=== PATIENT | male | born 1950 | race Caucasian/White ===

== ENCOUNTER 2018-09-22 01:20 | Outpatient (CLI) | payer MEDICARE, BC, SELFPAY ==
--- NOTE | 2018-09-22 11:35 | DI.MRI_ITS ---
SYMPTOMS/DIAGNOSIS: RADICULITIS, M54.10, LEFT LEG PAIN, M79.605, ONGOING LEFT LEG PAIN/TINGLING AND LOWER BACK DISCOMFORT, WORKING WITH PHYSICAL THERAPY MRI OF THE LUMBAR SPINE: Routine examination was performed. No priors for comparison. The conus medullaris has a normal appearance and location. At L5-S1, there are degenerative endplate signal changes. There is a diffuse disc bulge. Degenerative changes of the facets are present. No significant central spinal canal stenosis is seen. There is marked right neural foraminal stenosis and mild left neural foraminal stenosis. At L4-L5, there is disc desiccation. There are degenerative endplate signal changes. There is a diffuse disc bulge and a small central disc herniation. Hypertrophic changes of the facets are present. These all contribute to cause moderate central spinal canal stenosis. There is marked narrowing of the right neural foramen. There is severe bilateral neural foraminal stenosis. At L3-L4, there is disc desiccation. There are degenerative endplate signal changes. There is a diffuse disc bulge. There are degenerative changes of the facets. Mild narrowing of the central spinal canal is noted. There is mild right neural foraminal stenosis and marked left neural foraminal stenosis. At L2-L3, disc desiccation and degenerative endplate signal changes are present. There is a diffuse disc bulge. No focal disc herniation. Hypertrophic changes of the facets are present. These all contribute to cause mild narrowing of the central spinal canal. There is mild narrowing of the right neural foramen and left neural foramen present. At L1-L2, there is disc desiccation and degenerative endplate signal changes. A mild diffuse disc bulge is seen. No focal disc herniation or significant central spinal canal stenosis is seen. No significant neural foraminal stenosis is present. 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
== END 2018-09-22 01:40 ==
PROVIDERS: PCP Nurse Practitioner; Visit Provider Nurse Practitioner
DX: M51.17 Intervertebral disc disorders with radiculopathy, lumbosacral region (principal); M54.16 Radiculopathy, lumbar region; M51.16 Intervertebral disc disorders with radiculopathy, lumbar region; M79.605 Pain in left leg; R20.0 Anesthesia of skin
CPT/HCPCS: 72148

== ENCOUNTER → 2018-11-14 10:16 | Outpatient (BNVA) | payer MEDICARE, BC, SELFPAY | PROVIDERS: PCP Nurse Practitioner; Referring Provider Nurse Practitioner; Visit Provider Physical Therapy Assistant | DX: Z12.11 Encounter for screening for malignant neoplasm of colon (principal); Z86.010 Personal history of colon polyps; I10 Essential (primary) hypertension; Z80.3 Family history of malignant neoplasm of breast ==

== ENCOUNTER 2018-12-02 06:00 | Day surgery (SDC) | payer MEDICARE, BC, SELFPAY ==
[2018-12-02 06:10] VITALS: BP 122/80; PULSE 63; RESP 17; TEMP 36.6; O2SAT 97
--- NOTE | 2018-12-02 06:33 | W.COLOREPORT ---
Date of service: 12/02/18 Time of Service: :33 Colonoscopy Report Date of procedure: 12/02/18 Pre-op diagnosis general: Hx of polyps Post-op diagnosis procedure note: other (rectal polyps x4) Procedure: Colonoscopy with polypectomy by cold snare and cold forceps Surgeon: Renay Alan Anesthesia proc note operative: other (General/ ASA 2/Diane Murphy, RENU) Estimated blood loss (mL): 3 Pathology: other (Rectal polyps x4) Complications: None Disposition: same day Indications: The patient is here for Colonoscopy pre-op. His last screening was in 2014 and was remarkable for rectal serrated adenoma. He has no family history of colon cancer. He has not had any bowel habit changes. -Discussed colonoscopy bowel prep as well as the procedure. Discussed possible complications of the procedure to include bleeding, pain, perforation, missed small lesion/polyp, sore throat, aspiration and adverse reaction to the medications. Questions were answered to patient?s satisfaction. No guarantees were implied or given. Prep: Miralax/Dulcolax Procedure Start Time: 33 Procedure End Time: 08:17 Retraction Time: 24 minutes Findings: 4 small sessile polyps in the rectum Procedure Description: After informed consent was obtained the patient was taken to the procedure room and placed in a left decubitous position. Monitors were applied and a time out was done. The patients name, date of , procedure, allergies to medications and metal in their body was reviewed. The patient was then sedated. Once sedated and comfortable a rectal exam was done. External exam was normal. Internal exam revealed a normal sphincter tone and no palpable masses. I was unable to feel his prostate. The scope was then introduced and retro-flexed. Small Grade 1 internal hemorrhoids were identified. The scope was then advanced to the cecum without difficulty. The TI and appendiceal orifice were identified. The prep was adequate. The scope was then slowly retracted over 24 minutes back into the rectum. Polyps were removed with cold forceps and cold snare in the rectum. There was also moderate madrid-diverticulosis noted. The scope was removed and the patient was woken up and taken back to Same day surgery in stable condition. The patient tolerated the procedure well and there were no immediate complications. Follow up: The patient should follow up in 3-5 years unless they develop changes in bowel habits or other new gastrointestinal complaints.
--- NOTE | 2018-12-02 06:34 | W.PM.DSUDISC ---
Discharge Plan Disposition Patient Disposition: HOME Condition: Good Discharge Details Reason For Visit: Colonoscopy Attending Provider: Renay Alan Primary Care Provider: Esme Araiza Home Meds and New Rx's Prescriptions: Continued atorvastatin 40 MG tablet 40 mg PO DAILY RF: 0 levothyroxine [Synthroid] 175 MCG tablet 175 mcg PO M,W,F RF: 0 lisinopril-hydrochlorothiazide 1 EACH tablet 2 tab PO DAILY RF: 0 levothyroxine [Synthroid] 150 MCG tablet 150 mcg PO S,S,T,TH RF: 0 doxazosin 4 MG tablet 4 mg PO DAILY RF: 0 pediatric multivitamin [Gummi Bear Multivitamin] 1 EACH tablet,chewable 1 ea PO DAILY RF: 0 gabapentin 300 mg Capsule 300 mg PO TID RF: 0 Discharge Instructions Instructions: Colonoscopy (DC), Diverticulosis (DC), Colorectal Polyps (DC) Additional Instructions: Findings: 1. 4 small polyps in the rectum 2. Diverticulosis Follow up: 3-5 years Please call if you develop: fevers >101.5 Nausea or Vomiting Abdominal pain that is not transient DAY SURGERY UNIT POST COLONOSCOPY INSTRUCTIONS 1. Because there will be medication in your system for the next 24 hours, you may feel a little sleepy. Your coordination will be affected. Therefore: a. Do not drive or operate dangerous equipment for 24 hours. b. Do not drink alcohol beverages for 24 hours (not even beer). c. Plan to go home and rest for the day. 2. Generally there are no restrictions on your activity after a day or so has gone by, but you may feel a bit fatigued for a few days. 3 After you arrive home you may have a light meal and return to a normal diet as you can tolerate it without feeling sick to your stomach. 4. After surgery, you may feel pain or discomfort. This should be only transient, but if it persists please contact your doctor. 5. If there are any questions regarding the findings of your procedure, please feel free to contact your doctor. 6. If you are unable to contact your doctor with a problem, contact the hospital at [phone]. 7. Continue all your regular medications unless directed otherwise. I understand the above instructions and have no questions. Signature of Patient or Responsible Adult Escort Date/Time Name of Responsible Adult Escort Signature of Nurse Date/Time Activity:: Activity as Tolerated Diet:: High Fiber diet Discharge Orders Discharge Orders: Discharge Order (Routine); Ordered 12/02/18 Ordered By: Renay Alan DS: Diagnosis Discharge Diagnosis (1) S/P colonoscopy: Status: Acute (2) Diverticulosis large intestine w/o perforation or abscess w/o bleeding: Status: Acute (3) Colorectal polyps: Status: Acute
[2018-12-02] MEDS: Lactated Ringers 1,000 ML 80 ML IV (06:35)
--- NOTE | 2018-12-02 08:10 | BOWEL_PTH ---
PATIENT: Derrell Wheeler LOC: [facility] U#:[id number] AGE/SX: 68/M ROOM: RE12/02/[address]: Renay Alan MD : [id number] BED: DIS: 12/02/2018 SPEC #: [id number] RECD: 12/02/18 12:51 STATUS: RENEA RE #: [id number] LORI: 12/02/18 08:[address]: Renay Alan DEPT: Surgical Specimen RECD BY: Adele Souza ENTERED: 12/02/18 12:52 SP TYPE: Bowel OTHR DR: Esme Araiza Tissues: 1 - BIOPSY BOWEL Procedures: GROSS AND MICRO LEVEL 4 Comments: [id number]
[2018-12-02 08:53] VITALS: BP 109/69; PULSE 58; RESP 17; TEMP 36.3; O2SAT 97
== END 2018-12-02 09:18 | disposition home or self-care (01) ==
PROVIDERS: PCP Nurse Practitioner; Visit Provider Surgery
PROC: 0DJD8ZZ Inspection of Lower Intestinal Tract, Via Natural or Artificial Opening Endoscopic (ICD-10-PCS; CPT 45378; principal; 2018-12-02 07:30)
DX: Z12.11 Encounter for screening for malignant neoplasm of colon (principal); D12.8 Benign neoplasm of rectum; K64.0 First degree hemorrhoids; K57.30 Diverticulosis of large intestine without perforation or abscess without bleeding; Z86.010 Personal history of colon polyps; I10 Essential (primary) hypertension
CPT/HCPCS: 45385; 45380; 88305

== ENCOUNTER 2019-01-13 12:26 | Emergency (ER) | payer MEDICARE, BC, SELFPAY ==
[2019-01-13 12:31] VITALS: BP 118/72; PULSE 62; RESP 18; TEMP 37.1; O2SAT 100
--- NOTE | 2019-01-13 16:42 | ED.GENADUL_ITS ---
Discharge Plan Disposition Patient Disposition: HOME Discharge Details Chief Complaint: RashLesion Clinical Impression: Hives, Rash Primary Care Provider: Esme Araiza ED Provider: Quincy Elise Home Meds and New Rx's Prescriptions: New prednisone 20 mg tablet 40 mg PO DAILY 4 Days Qty: 8 RF: 0 epinephrine [EpiPen 2-Rio] 0.3 mg/0.3 mL auto-injector 0.3 mg IM ONCE PRN (Reason: anaphylaxis) Qty: 1 RF: 0 Continued atorvastatin 40 MG tablet 40 mg PO DAILY RF: 0 levothyroxine [Synthroid] 175 MCG tablet 175 mcg PO M,W,F RF: 0 lisinopril-hydrochlorothiazide 1 EACH tablet 2 tab PO DAILY RF: 0 doxazosin 4 MG tablet 4 mg PO DAILY RF: 0 gabapentin 300 mg Capsule 300 mg PO TID RF: 0 No Action levothyroxine [Synthroid] 150 MCG tablet 150 mcg PO S,S,T,TH RF: 0 Discharge Instructions Instructions: Urticaria (ED) Additional Instructions: Use epinephrine injection for severe allergic reaction (anaphylaxis) that results in difficulty breathing and/or oral swelling. Take Benadryl 25 mg every 8 hours for the next 4 days Take prednisone as prescribed. Your next dose is tomorrow 01/14/2019. Please contact your primary care physician to arrange follow-up. Return to the ER for any worsening or new concerning symptoms. Referrals: Esme Araiza [Primary Care Provider] - Medical Decision Making 68-year-old male here with itchy hives involving waistline and his groin and large hive right shoulder now 2+ weeks after hornet sting. Suspect allergic reaction with persistent histaminergic response. Plan to treat with course of prednisone and Benadryl and have him follow-up with primary care. I explained that if symptoms are not improving he will need to see a accounting machine mechanic. Usual and customary discharge instructions were provided. HPI General Mode of arrival: ambulatory . Date/Time Provider Initiated Documentation: 01/13/19 13:29 . Limitations to Documentation: no limitations . Information obtained by: patient . HPI Narrative: 68-year-old male here with a chief complaint of rash. Patient notes that he was stung by a hornet in his left hand and also right posterior shoulder approximately 2 weeks ago. Areas initially swelled up significantly and then started to resolve. He subsequently has developed rash that is red and itchy along his waistline, groin and perineum over the past week or so. He did start some Benadryl today but has not taken it prior to today. No oral or lip swelling, difficulty breathing or wheeze. Rash is now persistent and moderate. Related Data Home Medications Medication Instructions Recorded Confirmed atorvastatin 40 mg PO DAILY tab-cap 03/30/15 01/13/19 doxazosin 4 mg PO DAILY tab-cap 03/30/15 01/13/19 levothyroxine [Synthroid] 150 mcg PO S,S,T,TH 03/30/15 12/02/18 levothyroxine [Synthroid] 175 mcg PO M,W,F 03/30/15 01/13/19 lisinopril-hydrochlorothiazide 2 tab PO DAILY 03/30/15 01/13/19 gabapentin 300 mg PO TID 12/01/18 01/13/19 epinephrine [EpiPen 2-Rio] 0.3 mg IM ONCE PRN #1 each 01/13/19 prednisone 40 mg PO DAILY 4 Days #8 tab 01/13/19 Previous Rx's Medication Instructions Recorded epinephrine [EpiPen 2-Rio] 0.3 mg IM ONCE PRN #1 each 01/13/19 prednisone 40 mg PO DAILY 4 Days #8 tab 01/13/19 Allergies Allergy/AdvReac Type Severity Reaction Status Date / Time No Known Allergies Allergy Verified 01/13/19 12:34 General Stated Complaint: RashLesion OPHELIA: 4 Review of Systems ENT Reports as per HPI Respiratory Reports as per HPI Gastrointestinal Denies nausea and Denies vomiting Integumentary/Breasts Reports as per HPI [facility] Medical History Abnormal colonoscopy (Resolved) Colorectal polyps (Acute ~12/02/18) Diverticulosis large intestine w/o perforation or abscess w/o bleeding (Acute ~12/02/18) History of torn meniscus of left knee (Chronic) Hyperlipidemia Hypertension Hypothyroidism Pain in lateral portion of right knee (Chronic 04/25/15) Spinal stenosis (Acute) Surgical History Arthroplasty of knee (~2011) Colonoscopy - IV Sedation (~2004) Extraction of cataract Hx of arthroscopy of right knee (Acute) Hx of tonsillectomy (Chronic) S/P colonoscopy (Acute ~12/02/18) Family History Other Brain malignancy Breast cancer Colitis Heart disease Hyperlipidemia Hypothyroidism Kidney disease Social History Smoking/Tobacco Use Status: Former Tobacco Use Alcohol Intake: current Alcohol Intake frequency: holidays/special occasions only Drug use: Never Details: Pt states he quit smoking 1982 Do you feel safe at home: Yes Do you feel safe in your relationship?: Yes Exam Const General: cooperative and no acute distress HENMT Mouth: moist mucous membranes Eyes Conjunctivae: normal conjunctivae Sclera: normal sclerae Neck Neck: trachea midline and supple Resp Auscultation: clear to auscultation bilaterally, no rales, no rhonchi and no wheezes Cardio Jugular venous pressure: no JVD Rate: regular rate and not tachycardic Rhythm: regular rhythm GI Palpation: soft, not firm, no guarding, no masses, not rigid and nontender Skin General skin exam: no fluctuance and no induration Rashes: rashes noted (5cm circular hive rt shoulder, urticaria groin, waistline and gluteal cleft) Neuro General: alert, awake and tone normal Extrem General: no edema Psych Appearance: grossly normal Mental Status: mental status grossly normal Course Vital Signs Temperature 37.1 C 01/13/19 12:31 Pulse 62 01/13/19 12:31 Respiratory Rate 18 01/13/19 12:31 Blood Pressure 118/72 01/13/19 12:31 Pulse Oximetry 100 01/13/19 12:31 Temperature 37.1 C 01/13/19 12:31 Temperature Source Skin 01/13/19 12:31 Pulse 62 01/13/19 12:31 Respiratory Rate 18 01/13/19 12:31 Respiratory Effort 01/13/19 12:49 Blood Pressure 118/72 01/13/19 12:31 Pulse Oximetry 100 01/13/19 12:31 Oxygen Delivery Method Room Air 01/13/19 12:31 Oxygen Flow Rate 0 01/13/19 12:31 Pain Level 0 01/13/19 12:31
[2019-01-13] MEDS: predniSONE 20 MG TAB 60 MG PO (16:44)
[2019-01-13 16:52] VITALS: BP 104/76; PULSE 89; RESP 16; O2SAT 97
[2019-01-13 16:54] VITALS: BP 104/76; PULSE 89; RESP 16; O2SAT 97
== END 2019-01-13 16:54 | disposition home or self-care (01) ==
PROVIDERS: Emergency Provider Student in an Organized Health Care Education/Training Program; PCP Nurse Practitioner
DX: L50.9 Urticaria, unspecified (principal)
CPT/HCPCS: 99283; J7512

== ENCOUNTER 2019-01-28 19:59 | Emergency (ER) | payer MEDICARE, BC, SELFPAY ==
[2019-01-28 20:03] VITALS: BP 127/79; PULSE 89; RESP 18; TEMP 37.3; O2SAT 96
--- NOTE | 2019-01-28 20:13 | ED.GENADUL_ITS ---
Discharge Plan Disposition Patient Disposition: HOME Condition: Good Discharge Details Chief Complaint: Allergic Clinical Impression: Contact dermatitis Primary Care Provider: Esme Araiza ED Provider: Layton Knowles Eagan Meds and New Rx's Prescriptions: New prednisone 20 mg tablet 40 mg PO DAILY Qty: 10 RF: 0 diphenhydramine HCl [Benadryl] 25 mg capsule 25 mg PO Q6H PRN (Reason: itching) Qty: 20 RF: 0 Continued atorvastatin 40 MG tablet 40 mg PO DAILY RF: 0 levothyroxine [Synthroid] 175 MCG tablet 175 mcg PO M,W,F RF: 0 lisinopril-hydrochlorothiazide 1 EACH tablet 2 tab PO DAILY RF: 0 levothyroxine [Synthroid] 150 MCG tablet 150 mcg PO S,,T, RF: 0 doxazosin 4 MG tablet 4 mg PO DAILY RF: 0 gabapentin 300 mg Capsule 300 mg PO TID RF: 0 epinephrine [EpiPen 2-Rio] 0.3 mg/0.3 mL auto-injector 0.3 mg IM ONCE PRN (Reason: anaphylaxis) Qty: 1 RF: 0 Discharge Instructions Additional Instructions: This appears to be a contact dermatitis/localized allergic reaction to something coming in contact with the skin in the area of the rash. Does not appear to be a generalized allergic reaction. It does not appear to be a candidal yeast infection. We will place you back on prednisone and Benadryl. Follow-up with primary care next week. If unable to pinpoint a source of the reaction may need referral to transit planning manager. Return to ED for difficulty breathing, throat swelling, syncope, other concerns or problems. Referrals: Esme Araiza [Primary Care Provider] - Medical Decision Making This appears to be a contact type dermatitis that is present in the axilla and groin region. It is not candidal in nature. There is definitely a hive type reaction. It is pruritic. It is in the area of where his T-shirt would be tight in his underwear present. He denies any new undergarments, soaps, detergents, deodorants, other possible allergens. Is in the same job that he has had for years. No clear etiology. Not clear whether related to reaction a couple weeks ago. Will place back on steroids and Benadryl. Follow-up with primary care. May need referral to transit planning manager if cannot figure out etiology. Return to ED if generalized symptoms, difficulty breathing, other problems. HPI General Mode of arrival: ambulatory . Date/Time Provider Initiated Documentation: 01/28/19 20:10 . Limitations to Documentation: no limitations . Information obtained by: patient and RN notes reviewed . HPI Narrative: Patient presents with a rash under his arms and in his groin/perineal area. Started today. It is itchy. He had similar type reaction 2 weeks ago although not exactly in the same area. He has no difficulty breathing, throat swelling, tongue swelling, GI issues, lightheadedness or dizziness. There are no new soaps, detergents, fabric softeners, clothing, other potential allergen contacts that he can think of. Related Data Home Medications Medication Instructions Recorded Confirmed atorvastatin 40 mg PO DAILY tab-cap 03/30/15 01/28/19 doxazosin 4 mg PO DAILY tab-cap 03/30/15 01/28/19 levothyroxine [Synthroid] 150 mcg PO S,S,T,TH 03/30/15 01/28/19 levothyroxine [Synthroid] 175 mcg PO M,W,F 03/30/15 01/28/19 lisinopril-hydrochlorothiazide 2 tab PO DAILY 03/30/15 01/28/19 gabapentin 300 mg PO TID 12/01/18 01/28/19 epinephrine [EpiPen 2-Rio] 0.3 mg IM ONCE PRN #1 each 01/13/19 01/28/19 diphenhydramine HCl [Benadryl] 25 mg PO Q6H PRN #20 cap 01/28/19 prednisone 40 mg PO DAILY #10 tab 01/28/19 Previous Rx's Medication Instructions Recorded epinephrine [EpiPen 2-Rio] 0.3 mg IM ONCE PRN #1 each 01/13/19 diphenhydramine HCl [Benadryl] 25 mg PO Q6H PRN #20 cap 01/28/19 prednisone 40 mg PO DAILY #10 tab 01/28/19 Allergies Allergy/AdvReac Type Severity Reaction Status Date / Time No Known Allergies Allergy Verified 01/28/19 20:11 General Stated Complaint: RashLesion OPHELIA: 4 Review of Systems Eyes Denies irritation and Denies itchy eyes ENT Denies hoarseness, Denies lip swelling, Denies throat swelling and Denies tongue swelling Cardiovascular Denies diaphoresis, Denies syncope and Denies dyspnea Respiratory Denies dyspnea Gastrointestinal Denies cramping, Denies diarrhea, Denies nausea and Denies vomiting Integumentary/Breasts Reports pruritus and Reports rash Neurologic Denies syncope Allergic/Immunologic Denies itchy eyes, Denies lip swelling, Denies throat swelling and Denies tongue swelling [facility] Medical History Abnormal colonoscopy (Resolved) 05/18/[address] Alan, [facility], rectal serrated adenoma, repeat five years.mg Colorectal polyps (Acute ~12/02/18) Diverticulosis large intestine w/o perforation or abscess w/o bleeding (Acute ~12/02/18) Hyperlipidemia Hypertension Hypothyroidism Spinal stenosis (Acute) L leg pain Surgical History Colonoscopy - IV Sedation (~2004) Morales Melendrez Extraction of cataract bilateral 2009 Hx of arthroscopy of right knee (Acute) with meniscectomy. Dr. Jolly Hx of tonsillectomy (Chronic) In his youth S/P colonoscopy (Acute ~12/02/18) 2015- sessile serrated adenoma in the rectum Social History Smoking/Tobacco Use Status: Former Tobacco Use Alcohol Intake: current Alcohol Intake frequency: holidays/special occasions only Drug use: Never Details: Pt states he quit smoking 1982 Do you feel safe at home: Yes Do you feel safe in your relationship?: Yes Exam Const General: cooperative, comfortable and no acute distress Orientation: alert and oriented x3 Eyes Conjunctivae: conjunctivae normal Resp Effort & Inspection: normal respiratory effort Skin Rashes: rashes noted (erythematous, raised, pruritic rash) hives Course Vital Signs Temperature 99.1 F 01/28/19 20:03 Pulse 89 01/28/19 20:03 Respiratory Rate 18 01/28/19 20:03 Blood Pressure 127/79 01/28/19 20:03 Pulse Oximetry 96 01/28/19 20:03 Temperature 99.1 F 01/28/19 20:03 Temperature Source Skin 01/28/19 20:03 Pulse 89 01/28/19 20:03 Respiratory Rate 18 01/28/19 20:03 Respiratory Effort Non-Labored 01/28/19 20:07 Blood Pressure 127/79 01/28/19 20:03 Blood Pressure Position Sitting 01/28/19 20:03 Pulse Oximetry 96 01/28/19 20:03 Oxygen Delivery Method Room Air 01/28/19 20:03 Oxygen Flow Rate 0 01/28/19 20:03
[2019-01-28] MEDS: diphenhydrAMINE 25 MG CAP PO (20:25)
[2019-01-28] MEDS: predniSONE 20 MG TAB 60 MG PO (20:25)
== END 2019-01-28 20:38 | disposition home or self-care (01) ==
LOC: ER 20:35
PROVIDERS: Emergency Provider Emergency Medicine; PCP Nurse Practitioner
DX: L23.9 Allergic contact dermatitis, unspecified cause (principal); I10 Essential (primary) hypertension
CPT/HCPCS: 99283; J7512

== ENCOUNTER 2019-03-02 09:04 | Outpatient (REF) | payer MEDICARE, BC, SELFPAY ==
[2019-03-02 15:14] LABS: ALT 27 U/L (16-63); AST 22 U/L (15-37); Albumin 3.9 g/dL (3.4-5.0); Alkaline Phosphatase 46 U/L (46-116); BUN 16 mg/dL (7-18); CREATININE 0.99 mg/dL (0.70-1.30); Calcium 9.5 mg/dL (8.5-10.1); Calculated LDL 106 mg/dL; Chloride 104 mmol/L (98-107); Cholesterol 154 mg/dL (50-200); Glucose 110 mg/dL (70-100); HDL Cholesterol 38 mg/dL (40-60); Potassium 4.4 mmol/L (3.5-5.1); Sodium 141 mmol/L (136-145); TSH (W/Ref FT4) 0.42 uIU/mL (0.36-3.74); Total Protein 7.4 g/dL (6.4-8.2); Triglyceride 53 mg/dL (30-150)
== END 2019-03-02 09:24 ==
LOC: NCHCN 09:04
PROVIDERS: PCP Nurse Practitioner; Visit Provider Nurse Practitioner
DX: E78.5 Hyperlipidemia, unspecified (principal); I10 Essential (primary) hypertension; E03.9 Hypothyroidism, unspecified
CPT/HCPCS: 80053; 80061; 84443

== ENCOUNTER 2019-11-10 16:08 | Outpatient (REF) | payer MEDICARE, BC, SELFPAY ==
[2019-11-12 09:17] LABS: PSA, Screening 2.8 ng/mL (0.0-4.5)
== END 2019-11-10 16:28 ==
LOC: NCHCN 16:08
PROVIDERS: PCP Nurse Practitioner; Visit Provider Nurse Practitioner
DX: E03.9 Hypothyroidism, unspecified (principal); Z12.5 Encounter for screening for malignant neoplasm of prostate
CPT/HCPCS: 84153; 84443

== ENCOUNTER 2020-08-29 13:00 | Outpatient (REF) | payer OTHER, SELFPAY ==
[2020-08-29 15:48] LABS: ALT 38 U/L (16-63); AST 29 U/L (15-37); Albumin 4.2 g/dL (3.4-5.0); Alkaline Phosphatase 41 U/L (46-116); Anion Gap 8.6 mmol/L (3-11); BUN 15 mg/dL (7-18); Bilirubin, Total 1.1 mg/dL (0.2-1.0); CO2 26.4 mmol/L (21.0-32.0); Calcium 9.5 mg/dL (8.5-10.1); Calculated LDL 48 mg/dL (<100); Chloride 105 mmol/L (98-107); Cholesterol 107 mg/dL (<200); Glucose 105 mg/dL (74-106); HDL Cholesterol 37 mg/dL (40-60); Potassium 3.9 mmol/L (3.5-5.1); Sodium 140 mmol/L (136-145); TSH (W/Ref FT4) 29.86 uIU/mL (0.36-3.74); Total Protein 8.1 g/dL (6.4-8.2); Triglyceride 113 mg/dL (<150)
[2020-08-29 17:42] LABS: Hemoglobin A1C 6.6 % (<5.7)
== END 2020-08-29 13:01 | disposition home or self-care (01) ==
LOC: NCHCN 13:00
PROVIDERS: PCP Nurse Practitioner; Visit Provider Nurse Practitioner
DX: R73.03 Prediabetes (principal); E78.5 Hyperlipidemia, unspecified; E03.9 Hypothyroidism, unspecified
CPT/HCPCS: 80053; 80061; 83036; 84439; 84443

== ENCOUNTER 2020-10-31 15:36 | Outpatient (REF) | payer OTHER, SELFPAY ==
[2020-10-31 15:45] LABS: FREE T4 1.14 ng/dL (0.76-1.46); TSH 0.64 uIU/mL (0.36-3.74)
[2020-10-31 15:51] LABS: Hemoglobin A1C 6.6 % (<5.7)
== END 2020-10-31 15:37 | disposition home or self-care (01) ==
LOC: NCHCN 15:36
PROVIDERS: PCP Nurse Practitioner; Visit Provider Nurse Practitioner
DX: E03.9 Hypothyroidism, unspecified (principal); R73.03 Prediabetes
CPT/HCPCS: 83036; 84439; 84443

== ENCOUNTER 2020-12-19 15:43 | Outpatient (REF) | payer OTHER, SELFPAY ==
[2020-12-19 19:29] LABS: COMMENT (LAB VIEW ONLY) 223.48 mg/dL; Microalb ug/mg Crea 43.8 ug/mg Cr
== END 2020-12-19 15:44 | disposition home or self-care (01) ==
LOC: NCHCN 15:43
PROVIDERS: PCP Nurse Practitioner; Visit Provider Nurse Practitioner
DX: E11.9 Type 2 diabetes mellitus without complications (principal)
CPT/HCPCS: 82043; 82570

== ENCOUNTER 2021-03-14 10:44 | Outpatient (CLI) | payer OTHER, SELFPAY ==
--- NOTE | 2021-03-14 | DI.US_ITS ---
Exam(s) US HERNIA EXAM: US HERNIA CLINICAL HISTORY: LEFT INGUINAL HERNIA, K40.90. TECHNIQUE: Ultrasound was performed using standard protocol. COMPARISON: No exams were available for comparison FINDINGS: Sonographic assessment utilizing grayscale and color Doppler imaging was performed and targeted to th e area of clinical concern. There does appear to be a left inguinal hernia containing fat and loop of bowel. It measures 2.6 x 2 .[address] scan of the pelvis is recommended for further evaluation. IMPRESSION: Sonographic findings suggestive of a bowel containing left inguinal hernia. DATA REPOSITORY:
== END 2021-03-14 11:04 ==
PROVIDERS: PCP Nurse Practitioner; Visit Provider Nurse Practitioner
DX: K40.90 Unilateral inguinal hernia, without obstruction or gangrene, not specified as recurrent (principal)
CPT/HCPCS: 76857

== ENCOUNTER → 2021-03-22 10:55 | Outpatient (BNVA) | payer MEDICARE, SELFPAY | PROVIDERS: PCP Nurse Practitioner; Referring Provider Nurse Practitioner; Visit Provider Surgery | DX: K40.20 Bilateral inguinal hernia, without obstruction or gangrene, not specified as recurrent (principal); E11.9 Type 2 diabetes mellitus without complications | CPT/HCPCS: 99203; 99214 ==

== ENCOUNTER 2021-04-03 14:52 | Outpatient (REF) | payer MEDICARE, SELFPAY ==
[2021-04-03 15:15] LABS: Source Nasal/Nares
[2021-04-03 21:58] LABS: COVID-19 PCR Negative (Negative)
== END 2021-04-03 14:53 | disposition home or self-care (01) ==
LOC: LBN 14:52
PROVIDERS: PCP Nurse Practitioner; Visit Provider Surgery
DX: Z20.822 Contact with and (suspected) exposure to COVID-19 (principal); Z01.818 Encounter for other preprocedural examination
CPT/HCPCS: 87635

== ENCOUNTER 2021-04-04 07:45 | Day surgery (SDC) | payer MEDICARE, SELFPAY ==
--- NOTE | 2021-04-03 22:11 | W.PM.DSUDISC ---
Discharge Plan Disposition Patient Disposition: HOME Condition: Good Discharge Details Reason For Visit: right inguinal hernia Attending Provider: Coreen Cano Primary Care Provider: Esme Araiza Home Meds and New Rx's Prescriptions: No Action atorvastatin 40 MG tablet 40 mg PO DAILY RF: 0 lisinopril-hydrochlorothiazide 1 EACH tablet 2 tab PO DAILY RF: 0 levothyroxine [Synthroid] 150 MCG tablet 150 mcg PO DAILY RF: 0 doxazosin 4 MG tablet 4 mg PO DAILY RF: 0 metformin 500 mg tablet 500 mg PO DAILY RF: 0 ibuprofen 200 mg capsule 200 mg PO Q6H PRNRF: 0 gabapentin 300 mg Capsule 300 mg PO TID RF: 0 epinephrine [EpiPen 2-Rio] 0.3 mg/0.3 mL auto-injector 0.3 mg IM ONCE PRN (Reason: anaphylaxis) Qty: 1 RF: 0 Discharge Instructions Activity:: 5# wt restriction x2 wks Remove Dressings/Wound Care:: 24 hours Shower/Bathe:: 24 hours Diet:: As Tolerated Discharge Orders Discharge Orders: Discharge Order (Routine); Ordered 04/03/21 Ordered By: Coreen Cano DS: Diagnosis Discharge Diagnosis (1) Reducible right inguinal hernia: Status: Acute
[2021-04-04] VITALS (14 sets, daily range): BP systolic 96–154; BP diastolic 56–99; PULSE 46–63; RESP 13–20; TEMP 36–36.6; O2SAT 95–100; BMI 10.5
--- NOTE | 2021-04-04 07:10 | ANES.PREOP_ITS ---
General Info Date of Service Date Performed: 04/04/21 Height: 5 ft 8 in Weight: 31.285 kg Body Mass Index (BMI): 10.5 Surgical Procedure: Operation Date: 04/04/21 09:25 Proposed Procedures Side Surgeon p Bilateral Hernia Inguinal Laparoscopic w/mesh possible Bilateral Coreen Cano DO Meds Allergies and Home Medications Allergies Allergy/AdvReac Type Severity Reaction Status Date / Time bee venom protein (honey bee) Allergy Intermediate Swelling/Ed Unverified 04/04/21 08:05 benjamin Home Medication Medication Instructions Recorded atorvastatin 40 mg PO DAILY tab-cap 03/30/15 doxazosin 4 mg PO DAILY tab-cap 03/30/15 levothyroxine [Synthroid] 150 mcg PO S,S,T,TH 03/30/15 lisinopril-hydrochlorothiazide 2 tab PO DAILY 03/30/15 gabapentin 300 mg PO TID 12/01/18 epinephrine [EpiPen 2-Rio] 0.3 mg IM ONCE PRN #1 each 01/13/19 ibuprofen 200 mg capsule 200 mg PO Q6H PRN 03/20/21 metformin 500 mg tablet 500 mg PO DAILY 03/20/21 Current Visit Medications: Current Medications Generic Name Dose Route Start Last Admin Trade Name Freq PRN Reason Stop Dose Admin Acetaminophen 1,000 mg 04/04/21 06:00 Acetaminophen 500 Mg Tab PO 05/03/21 23:59 PREOP RENA Gabapentin 300 mg 04/04/21 06:00 Gabapentin 300 Mg Cap PO 05/03/21 23:59 PREOP RENA Ringer's Solution 1,000 mls @ 80 mls/hr 04/04/21 06:00 IV 05/03/21 23:59 INFUSION RENA Cefazolin Sodium/Dextrose 2 gm in 50 mls @ 100 mls/hr 04/04/21 06:00 Ancef Duplex IVPB 05/03/21 23:59 PREOP RENA Ondansetron HCl 4 mg/ Sodium 52 mls @ 200 mls/hr 04/03/21 22:09 Chloride IVPB Q6H PRN PRN IV Miscellaneous Supplies 1 each 04/04/21 06:00 Iv Access IV 05/03/21 23:59 DIRECTED RENA Morphine Sulfate 2 mg 04/03/21 22:09 Morphine 4 Mg/Ml Syr IVP Q1H PRN PRN Sodium Chloride 0 ml 04/04/21 06:00 Normal Saline Flush 10 Ml Syr IV 05/03/21 23:59 PRN PRN Sodium Chloride 0 ml 04/04/21 06:00 Normal Saline 10 Ml Vial IJ 05/03/21 23:59 DIRECTED PRN Sterile Water 0 ml 04/04/21 06:00 Water,Injection,Sterile 10 Ml Vial IJ 05/03/21 23:59 DIRECTED PRN Tramadol HCl 50 mg 04/03/21 22:09 Tramadol 50 Mg Tab PO Q6H PRN PRN Pain PFSH Active Problems Active Problems: Problem Status Onset Code Reducible right inguinal hernia K40.90 Colorectal polyps ~12/02/18 K63.5 Diverticulosis large intestine w/o perforation or abscess w/o bleeding ~12/02/18 K57.30 S/P colonoscopy ~12/02/18 Z98.890 Medical History Medical History Abnormal colonoscopy 05/18/[address] Alan, [facility], rectal serrated adenoma, repeat five years.mg Colorectal polyps (~12/02/18) Diabetes Diverticulosis large intestine w/o perforation or abscess w/o bleeding (~12/02/18) DJD (degenerative joint disease) GERD (gastroesophageal reflux disease) History of adenomatous polyp of colon Hyperlipidemia Hypertension Hypothyroidism Left inguinal hernia Leg pain, left Migraine Obesity Shoulder pain, left Spinal stenosis L leg pain Surgical History Surgical History Colonoscopy - IV Sedation (~2004) Morales Melendrez Extraction of cataract bilateral 2009 Hx of arthroscopy of right knee with meniscectomy. Dr. Jolly Hx of tonsillectomy In his youth S/P colonoscopy (~12/02/18) 2015- sessile serrated adenoma in the rectum Status post total knee replacement, right Tobacco Smoking/Tobacco Use Status: Former Tobacco Use Alcohol Alcohol Intake: current Alcohol intake frequency: holidays/special occasions only Substance Use Substance use: Never Substance use type: does not use Vital Signs and Lab Results Lab Results Blood Type / Crossmatch: No Data to Display Complete Blood Count: No Data to Display Complete Metabolic Panel: No Data to Display Liver Function Panel: 2 No Data to Display Coagulation Panel: No Data to Display Cardiac Panel: No Data to Display Arterial Blood Gas: No Data to Display Venous Blood Gas: No Data to Display Pancreas Panel: No Data to Display Thyroid Panel: No Data to Display Infectious Disease: Coronavirus (COVID-19)(PCR) Negative (Negative) 04/03/21 11:43 04/03/21 Coronavirus 2019 Source Nasal/Nares 04/03/21 11:43 04/03/21 Blood Cultures: No Data to Display Toxicology Panel: No Data to Display Anesthesia Assessment and Plan Anesthesia History Personal History: No History of Anesthesia Complications Family History: No Family History of Anesthesia Complications Exercise Tolerance Exercise Tolerance: Metabolic Equivalents>4 Pertinent Negatives Pertinent Negatives: No Symptoms of GERD Cardiac & Pulmonary Exam Cardiac Exam: Normal S1/S2 Heart Sounds Pulmonary Exam: Clear Bilateral Breath Sounds Implantable Cardiac Device Does patient have a Pacemaker or an ICD?: No Airway Exam Known Difficult Airway: No Mallampati Class: 2 Mouth Opening: Normal (> 3cm) Thyromental Distance: Greater than 3 cm Neck Range of Motion: Full ROM Neck Circumference: Normal Teeth Condition: Normal Dentition (missing and damaged dentition upper left) Tooth Numberin. Broken tooth ASA Classification ASA Score: ASA 3 Emergency Case?: No NPO Status NPO Status: NPO Clears >2 hours, Solids >8 hours Anesthesia Plan Resuscitation Status: Full Code Anesthesia Technique: General Anesthesia Airway Planned: Endotracheal Tube Monitors Used: Standard Monitors
[2021-04-04] MEDS: Gabapentin 300 MG CAP PO (08:35)
[2021-04-04] MEDS: Acetaminophen 500 MG TAB 1000 MG PO (08:35)
[2021-04-04] MEDS: Lactated Ringers 1,000 ML 80 ML IV ×3 (08:45→14:02)
[2021-04-04] MEDS: ceFAZolin 2 GM/50 ML BAG IVPB (10:20)
[2021-04-04] MEDS: Bupivacaine 0.25% Pres-Free 30 ML VIAL (10:34)
[2021-04-04] MEDS: Lidocaine 1% Multi-Dose 50 ML VIAL (10:35)
--- NOTE | 2021-04-04 10:47 | W.ANESNERVE ---
Nerve Block Single Injection Procedure Date and Time Date Performed: 04/04/21 Procedure Start: 10:03 Location Where Procedure Performed Procedure Location: Operating Room Procedure Stop: 10:14 Reason Performed: Postoperative Analgesia Requesting Provider: Coreen Cano Timeout Performed Timeout Performed: Yes Monitoring Used ECG, Blood Pressure, SpO2, ETCO2 and See EMR for corresponding vital signs Sterility Sterility: Hand Hygiene, Surgical Cap, Surgical Mask, Sterile Gloves, Eye Protection and Chlorhexidine Sedation Given During Procedure Sedation Given (Indicate Dose Given): Other: Medication/Route/Dose:: patient under GA during TAP block Patient Mental Status Patient Mental Status: Performed under general anesthesia Nerve Block 1st Nerve Block: Laterality: Bilateral Block Type: TAP Bilateral Needle / Catheter Used: 100mm SonoPlex II Local Anesthetic Bolus (Indicate Dose Given): Half of Total block solution given into each side, Bupivacaine 0.25% Dose:: 30 cc and Exparel Dose:: 10 cc Additives (Indicate Dose Given): None Ultrasound: Sterile probe cover and gel used Ultrasound Image Saved?: Yes Nerve Stimulator: Not Used Paresthesia: None Procedure Tolerated: No Complications Procedure Outcome: Successful Performed By: Renata Reza Supervised By: Matt Wilkins
[2021-04-04] MEDS: Bupivacaine LIPOSOME/PF 133 MG/10 ML VIAL IJ (12:30)
[2021-04-04] MEDS: Ketorolac 15 MG/ML VIAL IVP (13:59)
--- NOTE | 2021-04-04 14:55 | W.ANESPOSTOP ---
Postoperative Evaluation Date, Time and Location Date Performed: 04/04/21 Time Performed: 14:56 Patient Location: Day Surgery Unit Vital Signs Most Recent Imported Vital Signs: Most Recent Vital Signs Temp Pulse Resp BP Pulse Ox 36.5 C 50 L 19 132/76 98 04/04/21 14:10 04/04/21 14:10 04/04/21 14:10 04/04/21 14:10 04/04/21 14:10 Pain Score Most Recent Pain Score: Most Recent Pain Score Pain Level 2 04/04/21 14:10 Assessment Mental Status: Awake (Alert & Oriented to Patient Baseline) Airway and Respiratory Function: Patent airway with normal (patient baseline) respiratory exam Cardiovascular Function: Hemodynamically Stable Hydration Status: Adequately Hydrated Nausea & Vomiting: No Nausea or Vomiting Pain: Pain is tolerable per patient Peripheral Nerve Block: Patient did not receive a nerve block
--- NOTE | 2021-04-04 21:25 | ROE_ITS ---
Date of service: 04/04/21 Time of Service: 21:25 Operative Note Operative Note DATE OF PROCEDURE: 04/04/21 PRE-OP DIAGNOSIS: b/l inguinal hernias and umbilical hernia POST-OP DIAGNOSIS: same PROCEDURE: attempted palprascopic b/l inguinal repair. open left inguinal hernia repair umbilical hernia repair. ASSISTING SURGEON: Renay Alan ACQUISITION LEAD: Kandy Ortiz ANESTHESIA TYPE: Local By Surgeon, General LMA/ETT and Primary Nerve Block Refer to Anesthesia Record ESTIMATED BLOOD LOSS: 20 COMPLICATIONS: None Implants: see RN notes. Procedure Description: The patient is here today for hernia repair. Is causing him pain and discomfort. There is a extremely small incidental right inguinal hernia as well as a small umbilical hernia today we will be attempting a bilateral laparoscopic tap lateral inguinal hernia pair as well as a incidental umbilical hernia repair. And the possibility of a open hernia repair. Informed consent is obtai jesi explaining risks and benefits of the procedure including but not limited to: Bleeding, infection, pneumonia, blood clots, damage to bowel, bladder, blood vessels, or testicles. Complications of anesthetic as outlined by the department of anesthesia. Chronic pain, chronic numbness, reaction to the mesh necessitating removal of mesh, or recurrence of hernia. Patient is brought to the operative room suite and placed in the supine position. Anesthesia is administered per the department of anesthesia. Ceja catheter is placed. Tap nerve blocks are done by the department of anesthesia. Patient received preop antibiotics. He is prepped and draped in the usual sterile fashion using a ChloraPrep scrub solution. Timeout is performed. The patient was placed on the operating table in the supine position. A transverse infraumbilical incision was made and carried down through the skin and subcutaneous tissue with a scalpel. Bleeding points were controlled with electrocautery device. The anterior rectus fascia sheath was transversely incised. The rectus muscle was dissected laterally. A finger was placed under the anterior fascial sheath. Ensuring that we were in the proper plane. The balloon dissector was then introduced. The dissected lumen was placed down to the pubic tubercle area and noted to be in good position laparoscopically. This was then inflated to 20 puffs of air, creating a preperitoneal space. The dissecting balloon was removed and pneumopreperitoneum was established. The patient was placed in a Trendelenburg position. Next, two 5 mm midline ports were placed in the lower midline under direct visualization, after skin incisions were made. Upon entering the preperitoneal space, the periosteum in the external ring identified. The femoral vessels were identified. He has a significant amount of preperitoneal fat which hinders the ability to identify structures. Eventually the cord is identified. We had difficulty retracting and maneuvering the cord. And we were unable to identify the sac of the cord. After more than 45 minutes of attempting to manipulate and identified the sac, the procedure was abandoned for patient safety and converted to an open left hernia repair. The right inguinal hernia is extremely small and asymptomatic for the patient. We were not able to identify this laparoscopically either. I did not feel that the size of the hernia warranted open exploration. Only the left side was performed. Twenty cc of .25% Marcaine w/ epinephrine was used for local anesthetization. A #12 blade was used to make an incision over the external ring. Electrocautery used to provide hemostasis and dissect down to the fascia. The fascia was pretty much obliterated and there was nothing to open. The cord is elevated. The nerve was not identified. There very large is a cord lipomas. This is dissected off the cord structures. It is ligated and the stump was returned to the abdominal cavity. Electro-cautery is used to provide hemostasis. A [place] drain was placed around the cord to assist in mobilization. The cord was explored. There was is large hernia sac on the cord. There is no direct hernia pushing through the floor. The hernia sac is dissected off the cord using a combination of blunt dissection and electrocautery. Electrocautery is used to provide hemostasis. The sac was opened and there was small bowel within the sac. The contents are returned to the abdominal cavity. A high ligation of the sac is performed. The sac is returned the abdominal cavity. The hernia sac is than inverted and returned to the abdominal cavity. A sizel arge plug is than inserted into the defect through the internal ring, and over sewn to tighten up the ring with 2-0 vicryl. Please see RN notes from Lot number of the [employer] mesh patch/plug. The cord structures are still able to freely move through the ring itself. The patch was then placed onto the floor, and using 2-0 Vicryl, sewn into the pubic tubercle and the shelving portions of the inguinal ligament, in the standard Lichenstein fashion. The tails of the mesh are brought around the cord, sewn together w/ 2-0 Vicryl, and tucked under the external oblique. The wound was copiously irrigated. There was no bleeding noted. The drain was removed. All structures are returned to normal anatomical position. The nerve is not sewn into the mesh, nor caught up in any sutures. The external oblique is re- approximated using 2-0 vicryl in a running fashion. 10 cc of Exparel was instilled into the wound. Deep tissue was approximated with 3-0 Vicryl in a running fashion, and skin was approximated with 4-0 Monocryl in a running subcuticular fashion. Skin glue and sterile dressings are applied. Ceja was removed at the completion of the case. The patient tolerated the procedure without complications to recovery in stable condition. DARRON WOODY DO
== END 2021-04-04 16:44 | disposition home or self-care (01) ==
PROVIDERS: PCP Nurse Practitioner; Visit Provider Surgery
PROC: (CPT 49650; principal; 2021-04-04 09:15)
DX: K40.20 Bilateral inguinal hernia, without obstruction or gangrene, not specified as recurrent (principal); K42.9 Umbilical hernia without obstruction or gangrene; Z53.31 Laparoscopic surgical procedure converted to open procedure; E11.9 Type 2 diabetes mellitus without complications; E66.9 Obesity, unspecified; I10 Essential (primary) hypertension; E78.5 Hyperlipidemia, unspecified
CPT/HCPCS: 49505; 49585; C1781; J0690; J1100; J1885; J2405; J2704

== ENCOUNTER → 2021-04-24 09:26 | Outpatient (BNVA) | payer MEDICARE, SELFPAY | PROVIDERS: PCP Nurse Practitioner; Referring Provider Nurse Practitioner; Visit Provider Surgery | DX: Z48.815 Encounter for surgical aftercare following surgery on the digestive system (principal) ==

== ENCOUNTER → 2021-07-25 11:19 | Outpatient (BNVA) | payer MEDICARE, SELFPAY | PROVIDERS: PCP Nurse Practitioner; Referring Provider Nurse Practitioner; Visit Provider Surgery | DX: R10.9 Unspecified abdominal pain (principal); G89.18 Other acute postprocedural pain | CPT/HCPCS: 99212; 99213 ==

== ENCOUNTER 2021-09-07 18:13 | Outpatient (REF) | payer MEDICARE, SELFPAY | END 2021-09-07 18:14 | disposition home or self-care (01) | LOC: NCHCN 18:13 | PROVIDERS: PCP Nurse Practitioner; Visit Provider Nurse Practitioner Family ==

== ENCOUNTER → 2021-09-19 07:21 | Outpatient (BNVA) | payer MEDICARE, SELFPAY | PROVIDERS: PCP Nurse Practitioner; Referring Provider Nurse Practitioner; Visit Provider Surgery | DX: R10.32 Left lower quadrant pain (principal) | CPT/HCPCS: 99212 ==

== ENCOUNTER 2021-09-20 19:38 | Outpatient (REF) | payer MEDICARE, SELFPAY ==
[2021-09-20 19:45] LABS: ALT 39 U/L (16-63); AST 30 U/L (15-37); Albumin 4.1 g/dL (3.4-5.0); Alkaline Phosphatase 52 U/L (46-116); Anion Gap 7.4 mmol/L (3-11); BUN 19 mg/dL (7-18); CO2 27.6 mmol/L (21.0-32.0); CREATININE 0.9 mg/dL (0.70-1.30); Calcium 9.2 mg/dL (8.5-10.1); Calculated LDL 32 mg/dL (<100); Chloride 104 mmol/L (98-107); Cholesterol 91 mg/dL (<200); Glucose 158 mg/dL (74-106); HDL Cholesterol 34 mg/dL (40-60); Potassium 3.6 mmol/L (3.5-5.1); Sodium 139 mmol/L (136-145); TSH 0.06 uIU/mL (0.36-3.74); Total Protein 7.8 g/dL (6.4-8.2); Triglyceride 125 mg/dL (<150)
== END 2021-09-20 19:39 | disposition home or self-care (01) ==
LOC: NCHCN 19:38
PROVIDERS: PCP Nurse Practitioner; Visit Provider Nurse Practitioner Family
DX: E11.9 Type 2 diabetes mellitus without complications (principal); I10 Essential (primary) hypertension; E78.5 Hyperlipidemia, unspecified; E03.9 Hypothyroidism, unspecified
CPT/HCPCS: 80053; 80061; 84443

== ENCOUNTER → 2021-11-24 07:50 | Outpatient (BNVA) | payer MEDICARE, SELFPAY | PROVIDERS: PCP Nurse Practitioner; Referring Provider Nurse Practitioner; Visit Provider Physical Therapy Assistant | DX: Z86.010 Personal history of colon polyps (principal); Z12.11 Encounter for screening for malignant neoplasm of colon ==

== ENCOUNTER 2021-12-06 15:35 | Outpatient (REF) | payer MEDICARE, SELFPAY | END 2021-12-06 15:36 | disposition home or self-care (01) | LOC: LBN 15:35 | PROVIDERS: PCP Nurse Practitioner; Visit Provider Physical Therapy Assistant | DX: E03.9 Hypothyroidism, unspecified (principal) | CPT/HCPCS: 84443 ==

== ENCOUNTER 2022-02-12 18:10 | Outpatient (REF) | payer MEDICARE, SELFPAY ==
[2022-02-12 17:56] LABS: TSH (W/Ref FT4) 0.31 uIU/mL (0.36-3.74)
[2022-02-12 18:16] LABS: FREE T4 1.22 ng/dL (0.76-1.46)
== END 2022-02-12 18:11 | disposition home or self-care (01) ==
LOC: NCHCN 18:10
PROVIDERS: PCP Nurse Practitioner; Visit Provider Nurse Practitioner Family
DX: E03.9 Hypothyroidism, unspecified (principal)
CPT/HCPCS: 84439; 84443

== ENCOUNTER 2022-05-05 12:11 | Outpatient (REF) | payer MEDICARE, SELFPAY ==
[2022-05-05 15:48] LABS: ALT 35 U/L (16-63); AST 31 U/L (15-37); Albumin 4.1 g/dL (3.4-5.0); Alkaline Phosphatase 56 U/L (46-116); Anion Gap 8.4 mmol/L (3-11); BUN 15 mg/dL (7-18); Bilirubin, Total 1.1 mg/dL (0.2-1.0); CO2 28.6 mmol/L (21.0-32.0); Calcium 9.1 mg/dL (8.5-10.1); Chloride 103 mmol/L (98-107); Estimated GFR 80.97 (mL/min/1.73m2); Glucose 97 mg/dL (74-106); Potassium 3.7 mmol/L (3.5-5.1); Sodium 140 mmol/L (136-145)
== END 2022-05-05 12:12 | disposition home or self-care (01) ==
LOC: LBN 12:11
PROVIDERS: PCP Nurse Practitioner; Visit Provider Physician Assistant Medical
DX: Z20.822 Contact with and (suspected) exposure to COVID-19 (principal)
CPT/HCPCS: 80053

== ENCOUNTER 2022-06-05 12:54 | Outpatient (REF) | payer MEDICARE, SELFPAY ==
[2022-06-05 16:19] LABS: TSH (W/Ref FT4) 8.24 uIU/mL (0.36-3.74)
[2022-06-05 17:16] LABS: FREE T4 0.95 ng/dL (0.76-1.46)
[2022-06-05 23:29] LABS: PSA, Screening 4.2 ng/mL (<=6.5)
== END 2022-06-05 12:55 | disposition home or self-care (01) ==
LOC: NCHCN 12:54
PROVIDERS: PCP Nurse Practitioner; Visit Provider Nurse Practitioner Family
DX: E11.9 Type 2 diabetes mellitus without complications (principal); Z12.5 Encounter for screening for malignant neoplasm of prostate; E78.5 Hyperlipidemia, unspecified; E03.9 Hypothyroidism, unspecified; K21.9 Gastro-esophageal reflux disease without esophagitis; Z00.00 Encounter for general adult medical examination without abnormal findings
CPT/HCPCS: 84153; 84439; 84443

== ENCOUNTER 2022-06-15 16:49 | Outpatient (REF) | payer MEDICARE, SELFPAY ==
[2022-06-15 16:16] LABS: COMMENT (LAB VIEW ONLY) 109.33 mg/dL
[2022-06-15 16:44] LABS: Microalb ug/mg Crea 112.4 ug/mg Cr
== END 2022-06-15 16:50 | disposition home or self-care (01) ==
LOC: NCHCN 16:49
PROVIDERS: PCP Nurse Practitioner; Visit Provider Nurse Practitioner Family
DX: E11.9 Type 2 diabetes mellitus without complications (principal)
CPT/HCPCS: 82043; 82570

== ENCOUNTER 2022-07-23 17:19 | Outpatient (REF) | payer MEDICARE, SELFPAY ==
[2022-07-23 18:02] LABS: TSH 3.88 uIU/mL (0.36-3.74)
[2022-07-24 18:27] LABS: PSA, Screening 3.4 ng/mL (<=6.5)
== END 2022-07-23 17:20 | disposition home or self-care (01) ==
LOC: NCHCN 17:19
PROVIDERS: PCP Nurse Practitioner; Visit Provider Nurse Practitioner Family
DX: E03.9 Hypothyroidism, unspecified (principal); Z12.5 Encounter for screening for malignant neoplasm of prostate; I10 Essential (primary) hypertension
CPT/HCPCS: 84153; 84443

== ENCOUNTER 2022-12-04 16:29 | Outpatient (REF) | payer MEDICARE, SELFPAY ==
[2022-12-04 17:11] LABS: HCT 42.6 % (40.0-50.0); HGB 13.9 g/dL (13.5-17.5); MCH 25.5 pg (27.0-33.0); MCHC 32.6 % (32.0-36.0); MCV 78 fL (80-95); MPV 11.1 fL (8.0-11.0); Platelet Count 209 10^3/uL (130-400); RBC 5.45 10^6/uL (4.36-5.78); RDW 15.7 % (11.8-14.1); RDW-SD 44.2 fL
[2022-12-04 19:57] LABS: ALT 38 U/L (16-63); AST 34 U/L (15-37); Albumin 4.4 g/dL (3.4-5.0); Alkaline Phosphatase 46 U/L (46-116); BUN 13 mg/dL (7-18); Bilirubin, Total 1.5 mg/dL (0.2-1.0); CREATININE 0.9 mg/dL (0.70-1.30); Calcium 10.2 mg/dL (8.5-10.1); Calculated LDL 62 mg/dL (<100); Chloride 104 mmol/L (98-107); Cholesterol 112 mg/dL (<200); Estimated GFR 91.88 (mL/min/1.73m2); Glucose 115 mg/dL (74-106); HDL Cholesterol 42 mg/dL (40-60); Potassium 3.7 mmol/L (3.5-5.1); Sodium 142 mmol/L (136-145); TSH (W/Ref FT4) 4.06 uIU/mL (0.36-3.74); Total Protein 8.1 g/dL (6.4-8.2); Triglyceride 40 mg/dL (<150)
[2022-12-04 21:06] LABS: FREE T4 0.97 ng/dL (0.76-1.46)
[2022-12-04 22:05] LABS: Hemoglobin A1C 6.5 % (<5.7)
== END 2022-12-04 16:30 | disposition home or self-care (01) ==
LOC: NCHCN 16:29
PROVIDERS: PCP Nurse Practitioner Family; Visit Provider Nurse Practitioner Family
DX: I10 Essential (primary) hypertension (principal); E11.9 Type 2 diabetes mellitus without complications; K21.9 Gastro-esophageal reflux disease without esophagitis; E78.5 Hyperlipidemia, unspecified
CPT/HCPCS: 80053; 80061; 85027; 83036; 84439; 84443

== ENCOUNTER → 2023-01-14 01:27 | Outpatient (CLI) | payer MEDICARE, SELFPAY ==
--- NOTE | 2023-01-14 | DI.RAD_ITS ---
Exam(s) XR SHOULDER RT COMPLETE 2+V EXAM: XR SHOULDER RT COMPLETE 2+V CLINICAL HISTORY: RT SHOULDER PAIN, M25.511,CATCHING SYNDROME. TECHNIQUE: 2D digital imaging was performed of the right shoulder. Five images were obtained. AP, Grashey, Y-view and axillary views were obtained. COMPARISON: No exams were available for comparison FINDINGS: BONES: No acute fracture is present. No bony destructive lesion is seen. JOINTS: No dislocation present. There are degenerative changes seen at the acromioclavicular and dolores ohumeral joints characterized by joint space narrowing and osteophytes. SOFT TISSUE: Normal. IMPRESSION: Osteoarthritis of the shoulder. DATA REPOSITORY: RADIATION DOSE DELIVERED:
== END ==
PROVIDERS: PCP Nurse Practitioner Family; Visit Provider Nurse Practitioner Family
DX: M19.011 Primary osteoarthritis, right shoulder (principal)
CPT/HCPCS: 73030

== ENCOUNTER → 2023-01-24 10:55 | Outpatient (BNVA) | payer MEDICARE, SELFPAY | PROVIDERS: PCP Nurse Practitioner Family; Referring Provider Nurse Practitioner Family; Visit Provider Physical Therapy Assistant | DX: Z12.11 Encounter for screening for malignant neoplasm of colon (principal); Z86.010 Personal history of colon polyps ==

== ENCOUNTER 2023-02-08 10:01 | Day surgery (SDC) | payer MEDICARE, SELFPAY ==
--- NOTE | 2023-02-07 21:51 | W.COLOREPORT ---
Date of service: 02/08/23 Time of Service: 11:06 Colonoscopy Report Date of procedure: 02/08/23 Pre-op diagnosis general: Serrated adenoma in the rectum/pandiverticular disease Post-op diagnosis procedure note: same Surgeon: Coreen Cano Anesthesia Type: General:No Airway Estimated blood loss (mL): 2 Complications: None Disposition: same day Prep: Miralax/Dulcolax Retraction Time: 10 Procedure Description: After informed consent was obtained the patient was taken to the procedure room and placed in a left decubitous position. Monitors were applied and a time out was done. The patients name, date of , procedure, allergies to medications and metal in their body was reviewed. The patient was then sedated. Once sedated and comfortable a rectal exam was done. External exam was normal. Internal exam revealed a normal sphincter tone and no palpable masses. The prostate normal The scope was then introduced and retrofelexed. No internal hemorrhoids were identified. The scope was then advanced to the cecum w/out difficulty. The TI and appendiceal orifice were identified. The prep was BBPS 3 in all segments for total of 9. The scope was then slowly retracted over 11 minutes back into the rectum. He has [place] diverticula.. There are multiple, large mouth diverticula. There are no signs of active bleeding or infection. The diverticula do extend all the way over to the the cecum. He has multiple polyps that are removed today. there is a Flat 5 mm polyp at 80 cm that is removed with a cold biting forcep. He is a 1 cm pedunculated polyp at 70 cm that is removed with a cold snare. He has a 0.75 cm flat polyp at 50 cm that is removed with a cold biting forcep. He has a flat 5 mm polyp at 20 cm that is removed with a cold biting forcep. All specimens are retrieved and no bleeding is noted. The mucosa is pink and healthy with a normal vascular pattern. The patient was woken up and taken back to Same day surgery in stable condition. The patient tolerated the procedure well and there were no immediate complications. Follow up: The patient should follow up in 3 years unless they develop changes in bowel habits or other new gastrointestinal complaints.
--- NOTE | 2023-02-07 21:52 | PDOC.DSDIS_ITS ---
Date of service: 02/08/23 Time of Service: 11:13 Discharge Plan Disposition Patient Disposition: Home Condition: Good Discharge Details Reason For Visit: Colon cancer screening Attending Provider: Coreen Cano Primary Care Provider: MCKENNA GREENFIELD Home Meds and New Rx's Prescriptions: Continued atorvastatin 40 MG tablet 40 mg PO DAILY lisinopril-hydrochlorothiazide 1 EACH tablet 2 tab PO DAILY ibuprofen 200 mg capsule 200 mg PO Q6H PRN amlodipine 5 mg tablet 5 mg PO DAILY omeprazole 20 mg capsule,delayed release(DR/EC) 20 mg PO DAILY levothyroxine 112 mcg capsule 112 mcg PO DAILY gabapentin 300 mg Capsule 300 mg PO TID epinephrine [EpiPen 2-Rio] 0.3 mg/0.3 mL auto-injector 0.3 mg IM ONCE PRN (Reason: anaphylaxis) Qty: 1 0RF Rx Instructions: as a single dose Discontinued bisacodyl [Dulcolax (bisacodyl)] 5 mg tablet,delayed release (DR/EC) 5 mg PO ONCE Qty: 4 0RF Rx Instructions: Take according to provider's instructions for colonoscopy prep. polyethylene glycol 3350 17 gram/dose powder 17 g PO ONCE Qty: 238 0RF Rx Instructions: To be taken as directed by prescriber's office for colonoscopy prep. Discharge Instructions Additional Instructions: DSU Colonoscopy Post-Op Instructions Instructions for Everyone who is given Anesthesia: For your safety, please do the following for the next twenty-four (24) hours: *Do Not operate a motor vehicle (car, truck, motorcycle, etc.) *Do Not drink alcoholic beverages or use any recreational drugs for the first 24 hours or while taking pain medications. The medications in your body may have a reaction that can be dangerous. *Do Not make any important decisions or sign any important papers. Findings: -Multiple diverticula. Make sure you are moving your bowels on a regular basis and not straining to go to the bathroom. Consider starting a fiber product such as Metamucil daily. -Multiple polyps. No ASA or NSAIDs for 7 to 10 days Follow up: -My office will send a letter in 2 to 3 weeks time with results of biopsies and when we want you to repeat the colonoscopy, most likely 3 years time. 1. No lifting over 20 pounds or strenuous activity for the first 24 hours after your procedure. After 24 hours there are no restrictions on your activity but you may feel fatigued for a few days. 2. After you arrive home you may have a light meal and return to your normal diet as you can tolerate it without feeling sick to your stomach. 3. You may have a bloated, gaseous feeling in your belly (abdomen) after a colonoscopy. Passing gas and belching will help. Walking or lying down on your left side with your knees flexed may relieve the discomfort. Call the office at [phone] (Office) or [phone] (Hospital) right away if you notice any of the following: a.Vomiting of blood or ?coffee ground stools?. b.Rectal bleeding 1Tbsp, blood clots or continuous bleeding. c.Severe belly (abdominal) pain. d.A hard distended belly (abdomen) and an inability to pass gas. 4. Please don?t expect to have a normal BM (bowel movement) for 2-3 days after your procedure. 5. If there are questions regarding the findings of your procedure, please contact your doctor 6. If you are unable to contact your doctor with a problem, contact the hospital at [phone]. 7. Continue all your regular medications unless directed otherwise. I understand the above instructions and have no questions. Signature of Patient or Adult Escort Name of Responsible Adult Escort Signature of Nurse Date/Time Activity:: See above Diet:: See above Discharge Orders Discharge Orders: Discharge Order (Routine); Ordered 02/08/23 Ordered By: Coreen Cano DS: Diagnosis Discharge Diagnosis (1) Colorectal polyps: Status: Acute Asessment and Plan: Post [employer] Note/Eval The patient is seen and examined after their colonoscopy.? The patient has been able to pass gas.? They are not having abdominal pain.? They have been able to tolerate liquids and a snack.? They do not have any nausea or vomiting.? They are not having any chest pain or shortness of breath.??? They are not having any rectal bleeding. Their vital signs have been stable-see nursing notes. We discussed findings during their colonoscopy, and any biopsies that were done/polyps that were removed. The patient will be sent a letter with any biopsy results, and when to repeat the colonoscopy.-see discharge instructions. Patient was given explicit instructions to follow-up regarding colonoscopy-refer to discharge instructions.? We reviewed resumption of medications. Patient verbalized understanding and discharged in stable and satisfactory condition- See nursing notes. (2) Diverticulosis large intestine w/o perforation or abscess w/o bleeding: Status: Acute (3) Diabetes: (4) DJD (degenerative joint disease): (5) GERD (gastroesophageal reflux disease): (6) History of adenomatous polyp of colon: (7) History of tobacco use: (8) Hyperlipidemia: (9) Hypertension: (10) Hypothyroidism: (11) Spinal stenosis:
[2023-02-08 10:10] VITALS: BP 133/94; PULSE 64; RESP 17; TEMP 36.7; O2SAT 99
[2023-02-08] MEDS: Lactated Ringers 1,000 ML 80 ML IV (10:23)
[2023-02-08 10:24] VITALS: BMI 37.0
--- NOTE | 2023-02-08 10:24 | W.ANESPRE ---
General Info Date of Service Date Performed: 02/08/23 Height: 5 ft 1 in Weight: 88.9 kg Body Mass Index (BMI): 37.0 Surgical Procedure: Operation Date: 02/08/23 10:35 Proposed Procedure Side Surgeon p Colonoscopy Coreen Cano DO Actual Procedure Side Surgeon p Colonoscopy Not Applicable Coreen Cano DO Pre-Op Diagnosis Post-Op Diagnosis Colon cancer screening Meds Allergies and Home Medications Allergies Allergy/AdvReac Type Severity Reaction Status Date / Time bee venom protein (honey bee) Allergy Intermediate Swelling/Ed Unverified 02/06/23 16:11 benjamin Home Medication Medication Instructions Recorded atorvastatin 40 mg tablet 40 mg PO DAILY 03/30/15 lisinopril 20 2 tab PO DAILY 03/30/15 mg-hydrochlorothiazide 12.5 mg tablet gabapentin 300 mg capsule 300 mg PO TID 12/01/18 epinephrine 0.3 mg/0.3 mL 0.3 mg (0.3 mL) IM ONCE PRN 01/13/19 injection, auto-injector (EpiPen anaphylaxis #1 ea 2-Rio) ibuprofen 200 mg capsule 200 mg PO Q6H PRN 03/20/21 amlodipine 5 mg tablet 5 mg PO DAILY 12/14/22 levothyroxine 112 mcg capsule 112 mcg PO DAILY 12/14/22 omeprazole 20 mg capsule,delayed 20 mg PO DAILY 12/14/22 release Current Visit Medications: Current Medications Generic Name Dose Route Start Last Admin Trade Name Freq PRN Reason Stop Dose Admin Hyoscyamine Sulfate 0.125 mg 02/08/23 09:32 Hyoscyamine 0.125 Mg Sl/Oral/Chew SL 03/10/23 09:31 DIRECTED PRN Ringer's Solution 1,000 mls @ 80 mls/hr 02/08/23 06:00 02/08/23 10:23 IV 02/08/23 23:59 80 mls/hr INFUSION RENA Administration IV Miscellaneous Supplies 1 each 02/08/23 06:00 Iv Access IV 02/08/23 23:59 DIRECTED RENA Ondansetron HCl 4 mg 02/08/23 09:32 Ondansetron 4 Mg/2 Ml Vial IVP 03/10/23 09:31 Q4H PRN PRN Nausea / Vomiting Sodium Chloride 0 ml 02/08/23 06:00 Normal Saline Flush 10 Ml Syr IV 02/08/23 23:59 PRN PRN Sodium Chloride 0 ml 02/08/23 06:00 Normal Saline 10 Ml Vial IJ 02/08/23 23:59 DIRECTED PRN Sterile Water 0 ml 02/08/23 06:00 Water,Injection,Sterile 10 Ml Vial IJ 02/08/23 23:59 DIRECTED PRN PFSH Active Problems Active Problems: Problem Status Onset Code Colorectal polyps ~12/02/18 K63.5 Diverticulosis large intestine w/o perforation or abscess w/o bleeding ~12/02/18 K57.30 Medical History Medical History Abnormal colonoscopy 05/18/[address] Alan, [facility], rectal serrated adenoma, repeat five years.mg Diabetes DJD (degenerative joint disease) GERD (gastroesophageal reflux disease) History of adenomatous polyp of colon History of tobacco use Hyperlipidemia Hypertension Hypothyroidism Left inguinal hernia Leg pain, left Migraine Obesity Reducible right inguinal hernia small Shoulder pain, left Spinal stenosis L leg pain Surgical History Surgical History Colonoscopy - IV Sedation (~2004) Morales Melendrez Extraction of cataract bilateral 2009 History of left inguinal hernia repair (~04/04/21) History of umbilical hernia repair (~04/04/21) Hx of arthroscopy of right knee with meniscectomy. Dr. Jolly Hx of tonsillectomy In his youth S/P colonoscopy (~12/02/18) 2015- sessile serrated adenoma in the rectum Status post total knee replacement, right Tobacco Smoking/Tobacco Use Status: Former Tobacco Use Alcohol Alcohol Intake: current Alcohol intake frequency: holidays/special occasions only Substance Use Substance use: Never Substance use type: does not use Vital Signs and Lab Results Vital Signs Most Recent Vital Signs in EMR: Most Recent Vital Signs Temp Pulse Resp BP Pulse Ox 36.7 C 64 17 133/94 H 99 02/08/23 10:10 02/08/23 10:10 02/08/23 10:10 02/08/23 10:10 02/08/23 10:10 Lab Results Blood Type / Crossmatch: No Data to Display Complete Blood Count: No Data to Display Complete Metabolic Panel: No Data to Display Liver Function Panel: No Data to Display Coagulation Panel: No Data to Display Cardiac Panel: No Data to Display Arterial Blood Gas: No Data to Display Venous Blood Gas: No Data to Display Pancreas Panel: No Data to Display Thyroid Panel: No Data to Display Infectious Disease: No Data to Display Blood Cultures: No Data to Display Toxicology Panel: No Data to Display Anesthesia Assessment and Plan Anesthesia History Personal History: No History of Anesthesia Complications Family History: No Family History of Anesthesia Complications Exercise Tolerance Exercise Tolerance: Metabolic Equivalents>4 Pertinent Negatives Pertinent Negatives: No Symptoms of GERD Cardiac & Pulmonary Exam Cardiac Exam: Normal S1/S2 Heart Sounds Pulmonary Exam: Clear Bilateral Breath Sounds Implantable Cardiac Device Does patient have a Pacemaker or an ICD?: No Airway Exam Known Difficult Airway: No Mallampati Class: 2 Mouth Opening: Normal (> 3cm) Thyromental Distance: Greater than 3 cm Neck Range of Motion: Full ROM Neck Circumference: Normal Teeth Condition: Normal Dentition ASA Classification ASA Score: ASA 2 Emergency Case?: No NPO Status NPO Status: NPO Clears >2 hours, Solids >8 hours Anesthesia Plan Resuscitation Status: Full Code Anesthesia Technique: General Anesthesia Airway Planned: Natural Airway Monitors Used: Standard Monitors
--- NOTE | 2023-02-08 10:47 | BOWEL_PTH ---
PATIENT: Derrell Wheeler LOC: [facility] U#:[id number] AGE/SX: 72/M ROOM: RE02/08/[address]: Coreen Cano : 1950 BED: DIS: 02/08/2023 SPEC #: [id number] RECD: 02/08/23 12:47 STATUS: RENEA REQ #: [id number] LORI: 02/08/23 10:[address]: Coreen Cano DEPT: Surgical Specimen RECD BY: Adele Souza ENTERED: 02/08/23 12:49 SP TYPE: Bowel OTHR DR: MCKENNA GREENFIELD, [facility] Tissues: 1 - BIOPSY BOWEL 2 - BIOPSY BOWEL 3 - BIOPSY BOWEL 4 - BIOPSY BOWEL Procedures: GROSS AND MICRO LEVEL 4 Comments: [id number]
[2023-02-08 11:06] VITALS: BP 86/62; PULSE 54; RESP 16; TEMP 36.1; O2SAT 94
[2023-02-08 11:36] VITALS: BP 115/74; PULSE 59; RESP 18; TEMP 36.7; O2SAT 97
--- NOTE | 2023-02-08 12:17 | W.ANESPOSTOP ---
Postoperative Evaluation Date, Time and Location Date Performed: 02/08/23 Time Performed: 12:17 Patient Location: Day Surgery Unit Vital Signs Most Recent Imported Vital Signs: Most Recent Vital Signs Temp Pulse Resp BP Pulse Ox 36.7 C 59 L 18 115/74 97 02/08/23 11:36 02/08/23 11:36 02/08/23 11:36 02/08/23 11:36 02/08/23 11:36 Pain Score Most Recent Pain Score: Most Recent Pain Score Pain Level 0 02/08/23 11:36 Assessment Mental Status: Awake (Alert & Oriented to Patient Baseline) Airway and Respiratory Function: Patent airway with normal (patient baseline) respiratory exam Cardiovascular Function: Hemodynamically Stable Hydration Status: Adequately Hydrated Nausea & Vomiting: No Nausea or Vomiting Pain: Pt. Denies Any Pain Peripheral Nerve Block: Patient did not receive a nerve block
== END 2023-02-08 12:15 | disposition home or self-care (01) ==
PROVIDERS: PCP Nurse Practitioner Family; Visit Provider Surgery
PROC: 0DJD8ZZ Inspection of Lower Intestinal Tract, Via Natural or Artificial Opening Endoscopic (ICD-10-PCS; CPT 45378; principal; 2023-02-08 10:30)
DX: Z12.11 Encounter for screening for malignant neoplasm of colon (principal); D12.4 Benign neoplasm of descending colon; K57.30 Diverticulosis of large intestine without perforation or abscess without bleeding; Z86.010 Personal history of colon polyps; E11.9 Type 2 diabetes mellitus without complications
CPT/HCPCS: 45385; 45380; 88305

== ENCOUNTER → 2023-04-16 08:15 | Outpatient (BNVA) | payer MEDICARE, SELFPAY | PROVIDERS: PCP Nurse Practitioner Family; Referring Provider Nurse Practitioner Family; Visit Provider Student in an Organized Health Care Education/Training Program | DX: M19.011 Primary osteoarthritis, right shoulder (principal) | CPT/HCPCS: 99213 ==

== ENCOUNTER 2023-06-11 09:23 | Outpatient (REF) | payer MEDICARE, SELFPAY ==
[2023-06-11 15:51] LABS: TSH 2.07 uIU/mL (0.36-3.74)
[2023-06-11 15:58] LABS: Hemoglobin A1C 6.3 % (<5.7)
== END 2023-06-11 09:24 | disposition home or self-care (01) ==
LOC: NCHCN 09:23
PROVIDERS: PCP Nurse Practitioner Family; Visit Provider Nurse Practitioner Family
DX: E03.9 Hypothyroidism, unspecified (principal); E11.9 Type 2 diabetes mellitus without complications
CPT/HCPCS: 83036; 84443

== ENCOUNTER 2024-07-22 11:15 | Outpatient (REF) | payer MEDICARE, SELFPAY ==
[2024-07-22 16:21] LABS: ALT 33 U/L (16-63); AST 34 U/L (15-37); Albumin 4.3 g/dL (3.4-5.0); Alkaline Phosphatase 51 U/L (46-116); Anion Gap 10.3 mmol/L (3-11); BUN 16 mg/dL (7-18); Bilirubin, Total 1.64 mg/dL (0.2-1.0); CO2 25.7 mmol/L (21.0-32.0); CREATININE 0.9 mg/dL (0.70-1.30); Calcium 9.7 mg/dL (8.5-10.1); Calculated LDL 59 mg/dL (<100); Chloride 105 mmol/L (98-107); Cholesterol 115 mg/dL (<200); Estimated GFR 90.74 (mL/min/1.73m2); Glucose 105 mg/dL (74-106); HDL Cholesterol 48 mg/dL (40-60); Potassium 3.7 mmol/L (3.5-5.1); Sodium 141 mmol/L (136-145); Total Protein 8.1 g/dL (6.4-8.2); Triglyceride 40 mg/dL (<150)
[2024-07-22 17:04] LABS: FREE T4 1.14 ng/dL (0.76-1.46)
[2024-07-22 17:33] LABS: Hemoglobin A1C 6.5 % (<5.7)
== END 2024-07-22 11:16 | disposition home or self-care (01) ==
LOC: NCHCN 11:15
PROVIDERS: PCP Nurse Practitioner Family; Visit Provider Nurse Practitioner Family
DX: E11.9 Type 2 diabetes mellitus without complications (principal); E78.5 Hyperlipidemia, unspecified
CPT/HCPCS: 80053; 80061; 83036; 84439; 84443

== ENCOUNTER 2025-01-10 04:28 | Emergency (ER) | payer MEDICARE, SELFPAY ==
[2025-01-10 04:33] VITALS: BP 236/95; PULSE 60; RESP 18; TEMP 36.3; O2SAT 99
--- NOTE | 2025-01-10 04:46 | W.ED.GENAD ---
Discharge Plan Disposition Patient Disposition: Home Condition: Good Discharge Details Clinical Impression: Dental infection, Hypertension Primary Care Provider: MCKENNA GREENFIELD ED Provider: Diana Hutchison Home Meds and New Rx's Prescriptions: New amoxicillin-pot clavulanate 875-125 mg tablet 1 tab PO BID 7 Days Qty: 14 0RF Continued atorvastatin 40 MG tablet 40 mg PO DAILY lisinopril-hydrochlorothiazide 1 EACH tablet 2 tab PO DAILY ibuprofen 200 mg capsule 200 mg PO Q6H PRN amlodipine 5 mg tablet 5 mg PO DAILY omeprazole 20 mg capsule,delayed release(DR/EC) 20 mg PO DAILY levothyroxine 112 mcg capsule 112 mcg PO DAILY gabapentin 300 mg Capsule 300 mg PO TID epinephrine [EpiPen 2-Rio] 0.3 mg/0.3 mL auto-injector 0.3 mg IM ONCE PRN (Reason: anaphylaxis) Qty: 1 0RF Rx Instructions: as a single dose Discharge Instructions Instructions: Dental Pain ED Additional Instructions: Tylenol and ibuprofen over the counter for pain; follow the directions on the bottle. Antibiotic twice a day for the next 7 days. Call your dentist in the morning to schedule an appointment to be seen as soon as possible. Call your primary care doctor in the morning to schedule an appointment for within the next 72 hours to follow up on your visit here. At that visit please discuss your blood pressure which is high here in the ED. Return to the emergency department for new or worsening symptoms including worsening swelling, difficultly swallowing, neck pain, or if you have any other concerns. Discharge Data Discharge Date/Time-TO BE ENTERED AT DEPARTURE: 01/10/25 05:18 HPI General Mode of arrival: ambulatory. Date/Time Provider Initiated Documentation: 01/10/25 04:30. Limitations to Documentation: no limitations. Information obtained by: patient. HPI Narrative: 74yo M with hx HTN, hypothyroid, presenting with right lower dental pain. Has had pain in right lower frontal tooth for years and off; has been worse for the past several days and last night keeping him awake. Took tylenol and ibuporfen before bed yesterday evening. Has noticed some right sided facial swelling. No neck pain. No fevers. No difficulty swallowing. Otherwise in his usual state of health. Related Data Home Medications ?Medication ?Instructions ?Recorded ?Confirmed atorvastatin 40 mg tablet 40 mg PO DAILY 03/30/15 01/10/25 lisinopril 20 2 tab PO DAILY 03/30/15 01/10/25 mg-hydrochlorothiazide 12.5 mg tablet gabapentin 300 mg capsule 300 mg PO TID 12/01/18 01/10/25 epinephrine 0.3 mg/0.3 mL 0.3 mg (0.3 mL) IM ONCE PRN 01/13/19 01/10/25 injection, auto-injector (EpiPen anaphylaxis #1 ea 2-Rio) ibuprofen 200 mg capsule 200 mg PO Q6H PRN 03/20/21 01/10/25 amlodipine 5 mg tablet 5 mg PO DAILY 12/14/22 01/10/25 levothyroxine 112 mcg capsule 112 mcg PO DAILY 12/14/22 01/10/25 omeprazole 20 mg capsule,delayed 20 mg PO DAILY 12/14/22 01/10/25 release amoxicillin 875 mg-potassium 1 tab PO BID 7 days #14 tabs 01/10/25 clavulanate 125 mg tablet Previous Rx's ?Medication ?Instructions ?Recorded epinephrine 0.3 mg/0.3 mL 0.3 mg (0.3 mL) IM ONCE PRN 01/13/19 injection, auto-injector (EpiPen anaphylaxis #1 ea 2-Rio) amoxicillin 875 mg-potassium 1 tab PO BID 7 days #14 tabs 01/10/25 clavulanate 125 mg tablet Allergies Allergy/AdvReac Type Severity Reaction Status Date / Time bee venom protein (honey bee) Allergy Intermediate Swelling/Ed Unverified 01/10/25 04:32 benjamin General Stated Complaint: DentalOral OPHELIA: 4 Review of Systems Narrative: see HPI Exam Narrative Exam Narrative: General: Alert, well appearing, well nourished, in no acute distress. Head: Normocephalic, atraumatic Neck: Trachea midline, ?Neck supple. No anterior neck tenderness. ENT: ?Very mild swelling to right cheek. Poor dentition. Multiple missing teeth. #22 TTP; no evident intraoral abscess. Cardiac: ?RRR Resp: No respiratory distress. Speaking in full sentences. Abd: ?Non-distended Neurologic: GCS 15. ? Moves all extremities freely against gravity Course Vital Signs Vital signs: Vital Signs Temperature 36.3 C L 01/10/25 04:33 Pulse 60 01/10/25 04:33 Respiratory Rate 18 01/10/25 04:33 Blood Pressure 236/95 H 01/10/25 04:33 Pulse Oximetry 99 01/10/25 04:33 Temperature 36.3 C L 01/10/25 04:33 Temperature Source Tympanic 01/10/25 04:33 Pulse 60 01/10/25 04:33 Respiratory Rate 18 01/10/25 04:33 Blood Pressure 236/95 H 01/10/25 04:33 Pulse Oximetry 99 01/10/25 04:33 Oxygen Delivery Method Room Air 01/10/25 04:33 Oxygen Flow Rate 0 01/10/25 04:33 Pain Level 7 01/10/25 04:33 Medical Decision Making 74yo M with hx HTN, hypothyroid, presenting with right lower dental pain; has had pain in this tooth on and off for years but worse over the past few days now keeping him awake and associated slight right facial swelling. Hypertensive on arrival (236/95), vital signs otherwise reassuring. Poor dentition on exam, multiple missing teeth, #22 TTP. No evident apical or periapical or other intraoral abscess. No anterior neck tenderness, dose have slight right sided facial swelling. Not suggestive of Ludwigs, MANAGER PAID, deep space neck infection, buccal abscess. Not septic. No indication for labs or CT imaging. Repeat BP 207/98. Will give tylenol and toradol for pain, home BP medications, and start 7 day course of amox-clauv for dental infection. Advised close dental followup. Discussed observing him in the ED for his BP to come down after medication; he would prefer to go home. As he has no symptoms to suggest hypertensive crisis (decreased UOP, shortness of breath, chest pain, visual disturbances) this is not unreasonable. Appropriate for PCP followup for asymptomatic hypertension. Discharged home; discharge instructions and return precautions were reviewed with patient who verbalized understanding. All questions were answered and he is in full agreement with the plan. PFSH All Active Problems (Updated 01/10/25 @ 04:47 by Diana Hutchison MD) Hypertension (Chronic) Dental infection (Acute) Arthritis of right glenohumeral joint (Acute) Tubular adenoma (Acute ~02/08/23) Diverticulosis large intestine w/o perforation or abscess w/o bleeding (Acute ~12/02/18) Medical History (Updated 01/10/25 @ 04:47 by Diana Hutchison MD) Colorectal polyps (~12/02/18) History of tobacco use Reducible right inguinal hernia small Migraine History of adenomatous polyp of colon Obesity GERD (gastroesophageal reflux disease) Leg pain, left DJD (degenerative joint disease) Shoulder pain, left Diabetes Left inguinal hernia Spinal stenosis L leg pain Abnormal colonoscopy 05/18/[address] Alan, [facility], rectal serrated adenoma, repeat five years.mg Hypertension Hypothyroidism Hyperlipidemia Surgical History (Updated 02/13/23 @ 10:59 by Roma Curry) History of colonoscopy (~01/2023) with mac History of left inguinal hernia repair (~04/04/21) History of umbilical hernia repair (~04/04/21) Status post total knee replacement, right S/P colonoscopy (~12/02/18) 2014- sessile serrated adenoma in the rectum Hx of arthroscopy of right knee with meniscectomy. Dr. Jolly Hx of tonsillectomy In his youth Colonoscopy - IV Sedation (~2004) Morales Melendrez Extraction of cataract bilateral 2009 Family History Other Brain malignancy Breast cancer Colitis Heart disease Hyperlipidemia Hypothyroidism Kidney disease Social History Smoking/Tobacco Use Status: Former Tobacco Use Quit Date: 05/27/82 Smoking risk assessment performed?: Yes Alcohol Intake: current Alcohol Intake frequency: holidays/special occasions only Drug use: Never Substance use type: does not use Housing: house Current gender identity: male Do you feel safe at home: Yes Do you feel safe in your relationship?: Yes
[2025-01-10] MEDS: Amoxicillin 875/Clav. 125 TAB PO (04:54)
[2025-01-10] MEDS: amLODIPine 5 MG TAB PO (04:54)
[2025-01-10] MEDS: Acetaminophen 500 MG TAB 1000 MG PO (04:54)
[2025-01-10] MEDS: Ketorolac 15 MG/ML VIAL IM (04:55)
[2025-01-10] MEDS: hydroCHLOROthiazide 25 MG TAB PO (05:10)
[2025-01-10] MEDS: Lisinopril 20 MG TAB 40 MG PO (05:10)
[2025-01-10 05:11] VITALS: BP 207/98; PULSE 60; RESP 16; O2SAT 98
== END 2025-01-10 05:18 | disposition home or self-care (01) ==
PROVIDERS: Emergency Provider Student in an Organized Health Care Education/Training Program; PCP Nurse Practitioner Family
DX: R22.0 Localized swelling, mass and lump, head (principal); I10 Essential (primary) hypertension; K04.7 Periapical abscess without sinus
CPT/HCPCS: 99284; 99283; 96372; J1885

== ENCOUNTER 2025-03-16 11:46 | Outpatient (REF) | payer MEDICARE, SELFPAY ==
[2025-03-16 16:50] LABS: Anion Gap 11.3 mmol/L (3-11); BUN 14 mg/dL (7-18); CO2 26.7 mmol/L (21.0-32.0); Calcium 9.5 mg/dL (8.5-10.1); Chloride 100 mmol/L (98-107); Estimated GFR 93.45 (mL/min/1.73m2); Glucose 111 mg/dL (74-106); Potassium 3.7 mmol/L (3.5-5.1); Sodium 138 mmol/L (136-145); TSH (W/Ref FT4) 0.89 uIU/mL (0.36-3.74)
== END 2025-03-16 11:47 | disposition home or self-care (01) ==
LOC: NCHCN 11:46
PROVIDERS: PCP Nurse Practitioner Family; Visit Provider Nurse Practitioner Family
DX: Z00.00 Encounter for general adult medical examination without abnormal findings (principal); E03.9 Hypothyroidism, unspecified
CPT/HCPCS: 80048; 84443